=== PATIENT | male | born 1975 | race Caucasian/White ===

== ENCOUNTER 2016-07-22 12:27 | Day surgery (SDC) | payer BC ==
[~2016-07-22] VITALS: Ht 177.8 cm; Wt 135.6 kg
[~2016-07-22 12:27] MED LIST: CIPRO 500MG TA500 MG PO; LORTAB 7.5/5001 TAB PO
[2016-07-22 13:47] VITALS: BP 164/100; PULSE 83; TEMP 98.1
[2016-07-22] MEDS ORDERED: TORADOL 10MG TA10 MG PO (14:25)
[2016-07-22] MEDS ORDERED: NORCO 325 MG-51 TAB PO (14:26)
[2016-07-22 18:10] VITALS: BP 135/97; PULSE 74; TEMP 97.1
[2016-07-22 18:30] VITALS: BP 138/94; PULSE 74
[2016-07-22 18:45] VITALS: BP 130/99; PULSE 82
[2016-07-22 19:00] VITALS: BP 146/88; PULSE 68
[2016-07-22 19:30] VITALS: BP 155/99; PULSE 67
== END 2016-07-22 20:20 | disposition home or self-care (01) ==
LOC: SDCO 12:27 → SURG 18:20 → SDCO 20:20
DX: N20.1 Calculus of ureter (principal); Z80.3 Family history of malignant neoplasm of breast
CPT/HCPCS: OP; C1769; C1894; C2617; J0360; J0690; J1100; J1885; J2250; J2405; J2704; J2765; J3010; J7120; Q9967

== ENCOUNTER 2019-06-29 15:49 | Observation (INO) | payer BC ==
[~2019-06-29] VITALS: Ht 177.8 cm; Wt 128.0 kg
[2019-06-29] VITALS (18 sets, daily range): BP systolic 116–158; BP diastolic 74–100; PULSE 58–94; TEMP 97.8–98.8
[~2019-06-29 15:49] MED LIST changes: +NORCO 325 MG-51 TAB PO; +TORADOL 10MG TA10 MG PO
[2019-06-29] MEDS ORDERED: COZAAR 25MG25 MG/TAB PO (16:31)
[2019-06-29] MEDS ORDERED: ULTRAM 50MG TAB50 MG PO (16:32)
--- NOTE | 2019-06-29 16:50 | NUR ---
Patient alert and oriented, answers questions appropriately. See assessment. NPO since 1900 last night, last water intake 1100 today.
--- NOTE | 2019-06-29 20:00 | NUR ---
PT IS RESTING IN BED PEACEFULLY WITH NO S/S OF DISTRESS NOTED AND PT DENIES PAIN OR DISCOMFORT. PT STATES THAT HE FEELS LIKE HE IS READY TO GO HOME POST-OP. PT HAS VOIDED, HAS AMBULATED WITH A STEADY GAIT, IS A&OX4, DENIES PAIN, ATE HIS EVENING MEAL. PT EDUCATED THAT THIS MANAGER ENROLLMENT WILL BEGIN PROCESSING HIS DISCHARGE AND TO NOTIFY THIS MANAGER ENROLLMENT WHEN IS DOWNSTAIRS AWAITING HIM AT THE ER ENTRANCE. PT STATES UNDERSTANDING
--- NOTE | 2019-06-29 22:00 | NUR ---
PT HAS BEEN PREPARING HIMSELF AND HIS BELONGINGS FOR DISCHARGE. PT IS NOTED TO BE STANDING IN THE HALLWAY AND STATES THAT HIS IS DOWNSTAIRS AT THE ED ENTRANCE AND HE IS READY TO LEAVE. PT HAS BEEN EDUCATED ON DISCHARGE PAPERWORK AND PROVIDED COPIES AND SIGNED HIS COPIES. PT EDUCATED THAT A STAFF MEMBER MUST ACCOMPANY HIM TO HIS RIDE AND THAT THIS MARKETING COMMUNICATIONS LEADER WILL FIND A STAFF MEMBER TO ASSIST HIM WITH LEAVING. IV SITE WAS DISCONTINUED ABOUT 2100 HOURS WITHOUT DIFFCULTY AND BANDAID PLACED OVER SITE.
--- NOTE | 2019-06-29 23:05 | NUR ---
Pt IS RESTING IN BED PEACEFULLY WITH NO WANTS/NEEDS AND NO C/O PAIN AT THIS TIME. PT IS EAGER TO RETURN HOME AND DEMONSTRATES THAT HE IS ABLE TO PERFORM THE REQUISITE TASKS PRIOR TO DISCHARGE (I.E HE ATE MEAL, IS VOIDING EASILY, DENIES PAIN, AMBULATING WITHOUT DIFFICULTY, IS A&OX4). PT EDUCATED ON DISCHARGE PROCESSES. PT STATES UNDERSTANDING AND REPLIES THAT HE WILL CONTACT SPOUSE FOR HIS RIDE HOME. PT HAS CALL LIGHT AT HIS SIDE. WILL CONTINUE TO MONITOR.
== END 2019-06-29 22:15 | disposition home or self-care (01) ==
LOC: JCC 15:49
PROVIDERS: ADMIT Urology
DX: N20.1 Calculus of ureter (principal); I10 Essential (primary) hypertension; E66.9 Obesity, unspecified; F17.220 Nicotine dependence, chewing tobacco, uncomplicated; Z80.3 Family history of malignant neoplasm of breast; Z68.41 Body mass index [BMI] 40.0-44.9, adult
CPT/HCPCS: C1769; C2617; G0378; J1100; J2405; J2704; J3010; Q9967

== ENCOUNTER 2019-07-14 13:22 | Day surgery (SDC) | payer BC ==
[~2019-07-14] VITALS: Ht 177.8 cm; Wt 121.0 kg
[2019-07-14] VITALS (7 sets, daily range): BP systolic 136–171; BP diastolic 81–104; PULSE 59–87; TEMP 97.8–98
[~2019-07-14 13:22] MED LIST changes: +COZAAR 25MG25 MG/TAB PO; +ULTRAM 50MG TAB50 MG PO
--- NOTE | 2019-07-14 14:30 | NUR ---
Patient to room. 20 gauge IV started in right wrist after two attempts by this nurse. Connected to NS at 125mL/hr and Morphine VICE PRINCIPAL, verified by AIDA Ruiz. Patient having pain in lower back, sharp, constant. Dr. Cotto in to see patient.
--- NOTE | 2019-07-14 14:54 | NUR ---
Dr Haskins would like initial bag of NS infused as bolus then decrease rate to 125mL/hr. Rate increased to 999mL/hr at this time.
[2019-07-14 15:28] LABS: MUCOUS Present /lpf; PH 7 (5-8); SQUAMOUS EPITHELIAL 0-2 /hpf; URINE APPEARANCE Clear; URINE BACTERIA None Seen /hpf; URINE BILIRUBIN Negative (NEGATIVE); URINE BLOOD Negative (NEGATIVE); URINE COLOR Yellow; URINE GLUCOSE Negative (NEGATIVE); URINE KETONE Trace (NEGATIVE); URINE LEUKOCYTE ESTERASE Negative (NEGATIVE); URINE NITRATE Negative (NEGATIVE); URINE PROTEIN(semi-quant) Negative (NEGATIVE); URINE RBC 0-2 /hpf; URINE UROBILINOGEN Negative (NEGATIVE)
--- NOTE | 2019-07-14 15:35 | NUR ---
Lying in bed with eyes open. Patient says that he is already feeling better, very minimal pain at this time and nausea is improved. Denies further needs.
--- NOTE | 2019-07-14 16:49 | NUR ---
Patient to CT via wheelchair.
--- NOTE | 2019-07-14 17:58 | NUR ---
Reviewed surgical consent with the patient. Questions answered. Patient signs consent. Consent placed on chart. Patient lying in bed with eyes open watching TV. Verbalizes that he feels pretty good at this time. Denies pain or nausea. No further needs currently.
--- NOTE | 2019-07-14 20:30 | NUR ---
Pt. sitting up in bed at this time. Pt. is A&OX3, assessment complete. IV to rt. wrist patent, IV fluids infusing per orders. MEDICAL LABORATORY MANAGER infusing per orders. Pt. reports pain well managed with MEDICAL LABORATORY MANAGER. Pt. denies further needs, call light within reach.
[2019-07-14 21:58] LABS: COLLECTION METHOD CLEAN CATCH
[2019-07-15] VITALS (11 sets, daily range): BP systolic 112–137; BP diastolic 68–95; PULSE 56–80; TEMP 97.8–98.2
--- NOTE | 2019-07-15 07:25 | NUR ---
Lying in bed with eyes closed. Opens eyes when name called out. Rates pain at this time 1/10, right flank. LABEL STITCHER discontinued at this time. Patient connected to NS via gravity tubing as surgery has called and said that they will be up to get the patient soon. Patient informed. Patient denies further needs at this time.
--- NOTE | 2019-07-15 07:43 | NUR ---
Patient to surgery via bed by surgery staff.
--- NOTE | 2019-07-15 09:15 | NUR ---
Patient back to room via bed from surgery. Patient denies pain, just has some pressure like a feeling he will need to urinate. Patient educated that his first initial voids may be bloody and he can experience burning. Patient denies further needs at this time.
--- NOTE | 2019-07-15 12:32 | NUR ---
Plan: to return home with in [place]. Rosalba . Patient reports that Ailyn is his mother or [id number] in case of emergency. Patient obtains medications from [facility] without issues. PCP is Dr. Donato, has transportation and good care. Patient does not anticipate any additional needs and was educated on resources. Nothing follows.
--- NOTE | 2019-07-15 13:05 | NUR ---
Up in room. Explains that he is not really having pain. Urine is light pink in color. Denies pain or difficulty voiding. Patient voices he is ready to go home.
--- NOTE | 2019-07-15 13:13 | NUR ---
Reviewed discharge instructions with the patient. Questions answered. Patient signs discharge paperwork. Provided discharge packet to the patient. Patient will call when his is here to pick him up.
--- NOTE | 2019-07-15 13:49 | NUR ---
Patient calls and says that his is here to pick him up. Patient ambulates out to vehicle with WESTON Chacko.
== END 2019-07-15 13:49 | disposition home or self-care (01) ==
LOC: SDCO 13:22 → SURG 13:22 → SDCO 07-15 13:49 → EDSTATUS 07-17 10:26
PROVIDERS: Psychiatry & Neurology Psychiatry
DX: N13.2 Hydronephrosis with renal and ureteral calculous obstruction (principal); I10 Essential (primary) hypertension; F17.220 Nicotine dependence, chewing tobacco, uncomplicated; Z79.899 Other long term (current) drug therapy; E66.01 Morbid (severe) obesity due to excess calories
CPT/HCPCS: OP; C1769; C1894; C2617; G0378; G0379; J0690; J2250; J2270; J2405; J2704; J3010; J7030; Q9967